=== PATIENT | male | born 1990 | race Caucasian/White ===

== ENCOUNTER 2019-10-09 01:20 | Emergency (ER) | payer BC, SELFPAY ==
--- NOTE | ~2019-10-09 | CT_ITS ---
EXAMINATION: CT cervical spine wo con DATE: 10/09/2019 01:51 INDICATION: Neck pain TECHNIQUE: Computed tomography (CT) of the cervical spine was performed without intravenous contrast. The dose-length product (DLP) was 500.53 mGy-cm. Automated exposure control and iterative reconstruc tion technique were employed. COMPARISON: None FINDINGS: There is no fracture, dislocation, or subluxation. The vertebral body heights, alignment, a nd intervertebral disc spaces are normal. The paravertebral soft tissues are unremarkable. The odonto id is intact. IMPRESSION: 1. No acute osseous abnormality. Reviewed, dictated and finalized at location A.
--- NOTE | 2019-10-09 01:24 | ED.FALL ---
HPI - Fall General Chief Complaint: Fall Stated Complaint: back and neck pain Time Seen by Provider: 10/09/19 01:24 Source: patient and RN notes reviewed Mode of arrival: ambulatory Limitations: no limitations History of Present Illness HPI Narrative: patient was going down the steps. He stopped on the landing in turn to go down the last flight that is approximately 10 steps and he slipped at the top step and slid down. He has pain in his neck. The fall happened early this morning. He denies any numbness or tingling in his legs or arms. He is having difficulty with range of motion in his neck and some muscle spasms. complaint: fall Onset (ago): hour(s) (16) Fall from: down stairs (#) (10) Place fall occurred: home Loss of consciousness: none Context: tripped/slipped Location of injury: neck Severity: moderate Quality: dull and aching Related Data Allergies Allergy/AdvReac Type Severity Reaction Status Date / Time No Known Allergies Verified 03/28/10 14:37 Review of Systems Review of Systems: All systems reviewed & are unremarkable except as noted in HPI and below PMFSH Past Medical History Medical History (Updated 10/09/19 @ 03:29 by Lauro Mix MD) Morbid obesity Surgical History Surgical History (Updated 10/09/19 @ 01:37 by Lauro Mix MD) H/O hand surgery right Social History Social History (Updated 10/09/19 @ 01:38 by Lauro Mix MD) Smoking packs per day: 1 Smoking cigarettes per day: 20.0 Smoking status: Current every day smoker Tobacco type: cigarettes Alcohol intake: current Alcohol use details: occasional Substance use type: marijuana Gender identity (if verbalized by the patient): Male Sexual Orientation (if Verbalized by the Patient): Straight or Heterosexual Exam Const: General: healthy appearing, no acute distress and alert Nutritional Appearance: well nourished and obese morbidly obese Orientation/consciousness: patient oriented x3 HENMT: Head: normal to inspection Eyes: Conjunctivae: conjunctivae normal Pupils: Equal, round and reactive pupils present Neck: Neck: normal visual inspection Resp: Effort & Inspection: normal respiratory effort Auscultation: clear to auscultation bilaterally Cardio: Rate: regular rate Rhythm: regular rhythm GI: Auscultation: normal bowel sounds Back/Spine/Pelvis: Cervical Spine: cervical muscular tenderness ( middle C-spine and lower C-spine on the left), pain with cervical ROM ( all directions), Cervical spine tenderness, No step off deformity and cervical ROM abnormal ( More difficulty with flexion and extension movement causes pain) Skin: General skin exam: normal color Rashes: no rashes Neuro: General: patient oriented x3, moves all extremities and no focal motor deficits Speech: normal speech Gait exam (Neuro): Normal gait present Extrem: General: normal to inspection and no pedal edema Psych: Appearance: grossly normal and well kempt Mental Status: mental status grossly normal Affect: normal affect Attitude: cooperative Thought content: Yes Normal thought content present Course Vital Signs Vital signs: Vital Signs Temperature 36.2 C L 10/09/19 01:25 Pulse Rate 78 10/09/19 01:25 Respiratory Rate 18 10/09/19 01:25 Blood Pressure 156/88 H 10/09/19 01:25 Pulse Oximetry 97 10/09/19 01:25 Temperature 36.2 C L 10/09/19 01:25 Pulse Rate 77 10/09/19 02:40 Respiratory Rate 18 10/09/19 02:40 Blood Pressure 140/88 10/09/19 02:40 Pulse Oximetry 98 10/09/19 02:40 MDM - Fall Imaging Data Radiologist's impression: CT C-spine: No evidence a for cervical spine fracture. Straightening of the normal cervical lordosis which may be related to muscle spasm. Discharge Plan Discharge Clinical Impression: Sprain of cervical neck Qualifiers: Encounter type: initial encounter Qualified Code(s): S13.9XXA - Sprain of joints and ligaments of unspecified parts of nec
[2019-10-09 01:25] VITALS: BP 156/88; PULSE 78; RESP 18; TEMP 36.2; O2SAT 97
[2019-10-09 02:40] VITALS: BP 140/88; PULSE 77; RESP 18; O2SAT 98
[2019-10-09] MEDS: KETOROLAC (*BKC) 60 MG/2 ML VIAL IM (02:58)
[2019-10-09] MEDS: ORPHENADRINE CITRATE 100 MG TABLET.ER PO (02:59)
[2019-10-09 04:23] VITALS: BP 148/78; PULSE 72; RESP 16; TEMP 36.6; O2SAT 98
== END 2019-10-09 04:23 | disposition home or self-care (01) ==
PROVIDERS: Emergency Provider Emergency Medicine; PCP Internal Medicine
DX: S13.9XXA Sprain of joints and ligaments of unspecified parts of neck, initial encounter (principal); W10.9XXA Fall (on) (from) unspecified stairs and steps, initial encounter
CPT/HCPCS: 72125; 96372; 99283; 99284; A9270; J1885

== ENCOUNTER 2021-06-06 00:26 | Emergency (ER) | payer BC, SELFPAY ==
[2021-06-06 00:30] VITALS: BP 145/105; PULSE 115; RESP 20; TEMP 35.7; O2SAT 96
--- NOTE | 2021-06-06 00:43 | ECG_ITS ---
Measurements Intervals [place] Rate: 97 P: 57 NV: 184 QRS: 11 QRSD: 104 T: 69 QT: 320 QTc: 407 Interpretive Statements SINUS RHYTHM POSSIBLE LEFT ATRIAL ENLARGEMENT [-0.1mV P-WAVE IN V1/V2] BORDERLINE ECG NO PREVIOUS ECG AVAILABLE FOR COMPARISON Electronically Signed On 06-06-2021 17:01:05 CDT by Efren Pino M.D.
--- NOTE | 2021-06-06 00:53 | ED.GENADULT ---
HPI - General Adult General Chief complaint: Unspecified Stated complaint: Physc Eval Source: patient and police Limitations: no limitations History of Present Illness HPI narrative: this is a 30-year-old gentleman that was escorted to the ER by police after he was at his mother's home and apparently got into an altercation police were called to the home, Patient stated to his mother and to some friends at his home that he was suicidal and planned to cut his throat.. The patient describes having 4 tall boys, there is no fever chills no chest pain no shortness of breath. The patient Currently denies any suicidal thoughts or ideation no homicidal thoughts or ideations. States that he may have had suicidal thoughts in the past but he also states that has not everybody. Currently not suicidal not homicidal. Onset (ago): hour(s) Related Data Home Medications Medication Instructions Recorded Confirmed No Home Medications 06/06/21 06/06/21 Allergies Allergy/AdvReac Type Severity Reaction Status Date / Time No Known Allergies Verified 06/06/21 00:40 Review of Systems Review of Systems: All systems reviewed & are unremarkable except as noted in HPI and below PMFSH Past Medical History Medical History Morbid obesity Surgical History Surgical History H/O hand surgery right Social History Social History Smoking packs per day: 1 Smoking cigarettes per day: 20.0 Smoking status: Current every day smoker Tobacco type: cigarettes Alcohol intake: current Alcohol use details: occasional Substance use type: marijuana Gender identity (if verbalized by the patient): Male Sexual Orientation (if Verbalized by the Patient): Straight or Heterosexual Exam Const: General: cooperative, healthy appearing and comfortable HENMT: Head: normal to inspection Ears: hearing grossly normal bilaterally General nose exam: Normal external nose present Face and sinus: normal facial exam Mouth: Yes Normal oral and palatal mucosa present Eyes: General: appearance normal, both eyes and all related structures Visual Pollard: normal visual pollard by confrontation Neck: Neck: normal visual inspection Chest: Chest palpation & inspection: normal inspection of the chest Resp: Effort & Inspection: normal respiratory effort and able to speak in complete sentences Cardio: Jugular venous distension: no JVD Palpation: normal PMI Rate: regular rate Rhythm: regular rhythm GI: Inspection: normal to inspection Back/Spine/Pelvis: Back: no CVA tenderness Skin: General skin exam: normal color and no rashes or lesions noted Neuro: General: oriented to person, oriented to place and oriented to time Course Course Emergency Course: EKG and labs reviewed with patient. Labs reviewed with patient and mental health evaluated patient and no current evidence or thoughts or plans suicidal or homicidal intent. Critical Care Time Critical Care Time Critical Care Time: No Discharge Plan Discharge Clinical Impression: Encounter for psychiatric assessment Patient Disposition: Home, Self-Care Condition: Stable Instructions: Antibiotic Form Additional Instructions: keep all follow-up appointments with primary care physician Prescriptions: No Action No Home Medications RF: 0 Follow-up/Referrals: Shyanne Serrano MD [Primary Care Provider] - Time of Disposition: 02:13
[2021-06-06 01:00] LABS: Basophils Absolute Auto 0.06 K/mm3 (0.00-0.10); Basophils Percent Auto 0.7 % (0.0-1.0); Eosinophils Absolute Auto 0.18 K/mm3 (0.02-0.50); Eosinophils Percent Auto 2.2 % (1.0-6.0); Hematocrit 52.3 % (40.0-54.0); Hemoglobin 17.6 g/dL (14.0-18.0); Immature Granulocyte Absolute 0.03 K/mm3 (0.00-0.00); Immature Granulocyte Percent A 0.4 % (0.0-0.0); Lymphocytes Absolute Auto 2.67 K/mm3 (1.10-4.50); Mean Corpuscular HGB Conc 33.7 g/dL (32.0-36.0); Mean Corpuscular Hemoglobin 31.7 pg (27.0-31.0); Mean Corpuscular Volume 94.2 fL (78.0-102.0); Mean Platelet Volume 10.7 fl (8.7-11.0); Monocytes Absolute Auto 0.34 K/mm3 (0.10-0.90); Monocytes Percent Auto 4.2 % (2.0-11.0); Neutrophils Absolute Auto 4.8 K/mm3 (1.7-7.2); Neutrophils Percent Auto 59.5 % (50.0-70.0); Platelet Count Result 252 K/mm3 (150-420); Red Blood Count 5.55 M/mm3 (4.70-6.10); Red Cell Distribution Width 12.6 % (11.6-14.4); White Blood Count 8.1 K/mm3 (4.8-10.8)
[2021-06-06 01:28] LABS: Alanine Aminotransferase 48 U/L (16-63); Albumin Level 4.2 g/dL (3.4-5.0); Alkaline Phosphatase 85 U/L (46-116); Anion Gap 11 mmol/L (8-16); Aspartate Amino Transferase 22 U/L (15-37); Bilirubin,Total 0.4 mg/dL (0.00-1.00); Blood Urea Nitrogen 10 mg/dL (7-18); Calcium 8.5 mg/dL (8.5-10.1); Carbon Dioxide 25 mmol/L (21-32); Chloride 105 mmol/L (98-108); Estimated Glomerular Filt Rate > 60; Ethanol 190 mg/dL (0-6); Glucose 118 mg/dL (70-99); Osmolality Calculated 292 mOsm/kg (285-295); Potassium 3.9 mmol/L (3.5-5.1); Salicylate 3.5 mg/dL (2.8-20.0); Sodium 141 mmol/L (136-145); Thyroid Stimulating Hormone 1.68 uIU/mL (0.36-3.74); Total Protein 7.8 g/dL (6.4-8.2)
[2021-06-06 01:40] LABS: Acetaminophen < 2 ug/mL (10-30)
--- NOTE | 2021-06-06 01:42 | PC.NURSE ---
Pt is getting irate saying he does not want to be here. Pt is talking about past police engagements and he does not feel protected by the police. Pt is easily redirected and cooperative with staffing administrator at this time.
[2021-06-06 01:56] LABS: Amphetamine Screen Urine Negative (Negative); Barbiturate Screen Urine Negative (Negative); Benzodiazepines Screen Urine Negative (Negative); Cannabinoid Screen Urine Positive (Negative); Cocaine Screen Urine Negative (Negative); Methadone Screen Urine Negative (Negative); Opiate Screen Urine Negative (Negative)
[2021-06-06 02:10] VITALS: BP 115/90; PULSE 116; RESP 20; O2SAT 96
--- NOTE | 2021-06-06 02:10 | PC.NURSE ---
[facility] staff, Jorge, arrived and talked to Pt. After talking with pt, Jorge stated pt was free to go if he was medically clear. ERP notified and discharge process started.
== END 2021-06-06 02:18 | disposition home or self-care (01) ==
PROVIDERS: Emergency Provider Emergency Medicine; PCP Internal Medicine
DX: Z00.8 Encounter for other general examination (principal)
CPT/HCPCS: 36415; 80053; 80307; 84443; 85025; 93005; 99284

== ENCOUNTER 2021-06-23 15:35 | Emergency (ER) | payer BC, SELFPAY ==
[2021-06-23 15:40] VITALS: BP 148/72; PULSE 105; RESP 18; TEMP 36.6; O2SAT 97
[2021-06-23 16:31] LABS: Basophils Absolute Auto 0.04 K/mm3 (0.00-0.10); Basophils Percent Auto 0.4 % (0.0-1.0); Eosinophils Absolute Auto 0.25 K/mm3 (0.02-0.50); Eosinophils Percent Auto 2.5 % (1.0-6.0); Hematocrit 48.3 % (40.0-54.0); Immature Granulocyte Absolute 0.03 K/mm3 (0.00-0.00); Immature Granulocyte Percent A 0.3 % (0.0-0.0); Lymphocytes Absolute Auto 3.16 K/mm3 (1.10-4.50); Lymphocytes Percent Auto 31.9 % (18.0-42.0); Mean Corpuscular HGB Conc 35.2 g/dL (32.0-36.0); Mean Corpuscular Hemoglobin 31.9 pg (27.0-31.0); Mean Corpuscular Volume 90.6 fL (78.0-102.0); Mean Platelet Volume 10.9 fl (8.7-11.0); Monocytes Absolute Auto 0.71 K/mm3 (0.10-0.90); Monocytes Percent Auto 7.2 % (2.0-11.0); Neutrophils Absolute Auto 5.7 K/mm3 (1.7-7.2); Neutrophils Percent Auto 57.7 % (50.0-70.0); Platelet Count Result 260 K/mm3 (150-420); Red Blood Count 5.33 M/mm3 (4.70-6.10); Red Cell Distribution Width 11.9 % (11.6-14.4); White Blood Count 9.9 K/mm3 (4.8-10.8)
[2021-06-23 16:32] LABS: Add Urine Microscopic? YES; Appearance Urine Clear (Clear); Bilirubin Urine 2+ (Negative); Blood Urine Negative (Negative); Color Urine Dark Yellow (Yellow); Glucose Urine UA Negative (Negative); Ketones Urine Trace (Negative); Leukocyte Esterase Ur Negative LEU/UL (Negative); Nitrate Urine Negative (Negative); Protein Urine 1+ (Negative); Specific Grav Ur 1.025 (1.010-1.020); pH Urine 5.5 (5.0-8.0)
[2021-06-23 16:38] LABS: Bacteria Urine 3+ /hpf; Mucus Urine Moderate /lpf; RBC Urine 0-2 /hpf (0-2); Squamous Epithelial Cell Urine None seen /hpf (Few); WBC Urine 0-3 /hpf (0-3)
[2021-06-23 16:48] LABS: Amphetamine Screen Urine Positive (Negative); Barbiturate Screen Urine Negative (Negative); Benzodiazepines Screen Urine Negative (Negative); Cannabinoid Screen Urine Positive (Negative); Cocaine Screen Urine Negative (Negative); Methadone Screen Urine Negative (Negative); Opiate Screen Urine Negative (Negative); Phencyclidine Screen Urine Negative (Negative)
[2021-06-23 17:16] VITALS: BP 145/70; PULSE 89; RESP 18; O2SAT 98
[2021-06-23 17:19] LABS: Alanine Aminotransferase 35 U/L (16-63); Albumin Level 4.2 g/dL (3.4-5.0); Alkaline Phosphatase 87 U/L (46-116); Anion Gap 11 mmol/L (8-16); Aspartate Amino Transferase 21 U/L (15-37); Blood Urea Nitrogen 15 mg/dL (7-18); Calcium 9.3 mg/dL (8.5-10.1); Carbon Dioxide 27 mmol/L (21-32); Chloride 101 mmol/L (98-108); Estimated CRCL calculation 146 ml/min; Estimated Glomerular Filt Rate > 60; Glucose 107 mg/dL (70-99); Osmolality Calculated 288 mOsm/kg (285-295); Potassium 3.7 mmol/L (3.5-5.1); Salicylate 4.7 mg/dL (2.8-20.0); Sodium 139 mmol/L (136-145); Total Protein 8.1 g/dL (6.4-8.2)
[2021-06-23 17:22] LABS: Acetaminophen < 2 ug/mL (10-30); Ethanol < 3 mg/dL (0-6)
--- NOTE | 2021-06-23 18:02 | PC.NURSE ---
[facility] staff at bedside interviewing pt.
[2021-06-23 18:20] VITALS: BP 135/67; PULSE 79; RESP 18; TEMP 36.7; O2SAT 98
--- NOTE | 2021-06-23 19:32 | ED.PSYCH ---
HPI - Psych General Chief Complaint: Psychiatric Symptoms Stated Complaint: psych eval Time Seen by Provider: 06/23/21 15:37 Source: patient, RN notes reviewed and old records reviewed Mode of arrival: ambulatory Limitations: no limitations History of Present Illness complaint: feels depressed Onset (ago): day(s) (1) Duration: getting worse History of same: Yes Relieving factors: none Exacerbating factors: none Context: recent drug abuse and not taking psychiatric medications Associated psychiatric symptoms: depression and delusions Treatments prior to arrival: none If self harm: other (none) Related Data Allergies Allergy/AdvReac Type Severity Reaction Status Date / Time No Known Allergies Verified 06/23/21 16:56 Review of Systems Review of Systems: All systems reviewed & are unremarkable except as noted in HPI and below PMFSH Past Medical History Medical History Morbid obesity Schizo-affective psychosis Substance abuse UTI (urinary tract infection) Surgical History Surgical History H/O hand surgery right Social History Social History Smoking packs per day: 1 Smoking cigarettes per day: 20.0 Smoking status: Current every day smoker Tobacco type: cigarettes Alcohol intake: current Alcohol use details: occasional Substance use type: marijuana Gender identity (if verbalized by the patient): Male Sexual Orientation (if Verbalized by the Patient): Straight or Heterosexual Exam Const: General: no acute distress and alert Nutritional Appearance: well nourished Orientation/consciousness: patient oriented x3 Limitations: no limitations HENMT: Ears: external ears normal, TM's normal bilaterally and EAC's normal General nose exam: Normal external nose present and Normal nares present Face and sinus: normal facial exam and sinuses nontender Mouth: Yes moist mucous membranes abnormal Eyes: Conjunctivae: conjunctivae normal Pupils: Equal, round and reactive pupils present EOM: EOMs intact bilaterally Neck: Neck: normal visual inspection and no lymphadenopathy Chest: Chest palpation & inspection: normal inspection of the chest Resp: Effort & Inspection: normal respiratory effort Auscultation: clear to auscultation bilaterally Cardio: Rate: regular rate Rhythm: regular rhythm GI: GI Palp: Yes Soft to palpation and No Tenderness to palpation present (GI) : General: Yes no CVA tenderness Male General Exam: Yes normal external exam Back/Spine/Pelvis: Back: no CVA tenderness Skin: General skin exam: normal color Neuro: General: patient oriented x3, moves all extremities, no meningeal signs, no focal motor deficits and CN's II-XI intact bilaterally Extrem: General: normal to inspection and no pedal edema Psych: Appearance: grossly normal Mental Status: mental status grossly normal Attitude: cooperative Thought content: Yes Paranoid delusions present Course Course Emergency Course: Pt was stable in the ED. For Behavioral Health disposition. Reevaluation(s) Date: 06/23/21 Time: 16:35 Vital Signs Vital signs: Vital Signs Temperature 36.6 C 06/23/21 15:40 Pulse Rate 105 H 06/23/21 15:40 Respiratory Rate 18 06/23/21 15:40 Blood Pressure 148/72 H 06/23/21 15:40 Pulse Oximetry 97 06/23/21 15:40 Temperature 36.6 C 06/23/21 19:36 Pulse Rate 100 06/23/21 19:36 Respiratory Rate 20 06/23/21 19:36 Blood Pressure 132/80 06/23/21 19:36 Pulse Oximetry 95 06/23/21 19:36 MDM - Psych Differential Diagnosis Differential diagnosis: Likely acute psychosis, bipolar disorder and acute anxiety Medical Records Attestation: I reviewed the patient's medical records. Lab Data Attestation: I reviewed the patient's lab results. Result diagrams: 06/23/21 16:24 06/23/21 16
[2021-06-23] MEDS: cefTRIAXone 1 GM VIAL IM (19:33)
[2021-06-23 19:36] VITALS: BP 132/80; PULSE 100; RESP 20; TEMP 36.6; O2SAT 95
== END 2021-06-23 19:43 | disposition home or self-care (01) ==
PROVIDERS: Emergency Provider Emergency Medicine; PCP Internal Medicine
DX: F19.10 Other psychoactive substance abuse, uncomplicated (principal); F25.0 Schizoaffective disorder, bipolar type; N39.0 Urinary tract infection, site not specified
CPT/HCPCS: 36415; 80053; 80307; 81001; 84443; 85025; 96372; 99284; J0696

== ENCOUNTER 2021-07-26 09:52 | Emergency (ER) | payer BC, SELFPAY ==
--- NOTE | ~2021-07-26 | XR_ITS ---
EXAMINATION: XR hand RT min 3V DATE: 07/26/2021 10:24 INDICATION: Pain at the right fifth metacarpal post fall TECHNIQUE: Posteroanterior, oblique and lateral views of the right hand were obtained. COMPARISON: 07/15/2012 FINDINGS: Old fracture of the right fifth metacarpal which is healed in near-anatomic alignment. No acute fract ures identified. Joint spaces are normal. Lucent lesion with narrow zone of transition at the distal pole of the scaphoid which could represent a degenerative cyst or erosion. Soft tissues are unremarka ble. IMPRESSION: 1. No acute osseous abnormality. Reviewed, dictated and finalized at location A.
[2021-07-26 09:52] VITALS: BP 159/99; PULSE 81; RESP 20; TEMP 36.6; O2SAT 100
--- NOTE | 2021-07-26 10:05 | ED.UPPEXIN ---
HPI - Extremity Injury (Upper) General Chief Complaint: Extremity Injury, Upper Stated Complaint: ambulance Time Seen by Provider: 07/26/21 10:06 Source: patient History of Present Illness HPI narrative: 31-year-old history obesity, schizoaffective disorder, substance abuse, prior right hand surgery got intoxicated this morning and fell forwards. He presents with -- right hand pain maximum over the right 5th MP joint -- 0.5 cm ulceration over his dorsal index finger. no other injuries noted. patient is up-to-date on tetanus and has received it in the past 5 years. MD complaint: injury to: right and hand Onset (ago): hour(s) ( 3 hours ago) Other injuries: none Handedness: right Place: home Severity: mild Relieving factors: none Exacerbating factors: none Context: fall Associated symptoms: denies other symptoms Related Data Home Medications Medication Instructions Recorded Confirmed No Home Medications 07/26/21 07/26/21 Allergies Allergy/AdvReac Type Severity Reaction Status Date / Time No Known Allergies Verified 06/23/21 16:56 Review of Systems Review of Systems: All systems reviewed & are unremarkable except as noted in HPI and below Constitutional: Constitutional: Reports as per HPI and Reports no additional constitutional complaints Eyes: Eyes: Reports as per HPI and Reports no additional eye complaints ENT: Reports system reviewed and no additional complaints, except as documented and Reports as per HPI Cardiovascular: Cardiovascular: Reports as per HPI and Reports no additional cardiovascular complaints Respiratory: Respiratory: Reports as per HPI and Reports no additional respiratory complaints Gastrointestinal: Gastrointestinal: Reports as per HPI and Reports no additional gastrointestinal complaints Genitourinary: Genitourinary: Reports no additional male genitourinary complaints and Reports as per HPI Musculoskeletal: Musculoskeletal: Reports no additional musculoskeletal complaints and Reports as per HPI Comments: right hand injury with worst pain over the right 5th MP joint Integumentary/Breasts: Skin/Breast: Reports system reviewed and no additional complaints, except as docu and Reports as per HPI Comments: 0.5 cm ulceration over his dorsal index finger Neurologic: Reports system reviewed and no additional complaints, except as documented and Reports as per HPI Psychiatric: Psychiatric: Reports no additional psychiatric complaints and Reports as per HPI Endocrine: Endocrine: Reports no additional endocrine complaints and Reports as per HPI Hematologic/Lymphatic: Hematologic/Lymphatic: Reports no additional hematologic/lymphatic complaints and Reports as per HPI Allergic/Immunologic: Allergic/Immunologic: Reports no additional allergic/immunologic complaints and Reports as per HPI [facility] Past Medical History Medical History Morbid obesity Schizo-affective psychosis Substance abuse UTI (urinary tract infection) Surgical History Surgical History H/O hand surgery right Social History Social History Smoking packs per day: 1 Smoking cigarettes per day: 20.0 Smoking status: Current every day smoker Tobacco type: cigarettes Alcohol intake: current Alcohol use details: occasional Substance use type: marijuana Gender identity (if verbalized by the patient): Male Sexual Orientation (if Verbalized by the Patient): Straight or Heterosexual Exam Const: General: no acute distress and alert Orientation/consciousness: patient oriented x3 HENMT: Head: normal to inspection Face and sinus: normal facial exam Eyes: Conjunctivae: conjunctivae normal Pupils: Equal, round and reactive pupils present EOM: EOMs intact bilaterally Neck: Neck: normal visual inspection and no lymphadenopathy Chest: Ch
[2021-07-26 11:09] VITALS: BP 158/94; PULSE 72; RESP 20; TEMP 36.6; O2SAT 97
== END 2021-07-26 11:14 | disposition home or self-care (01) ==
PROVIDERS: Emergency Provider Internal Medicine Critical Care Medicine
DX: M79.641 Pain in right hand (principal); F25.9 Schizoaffective disorder, unspecified; F19.10 Other psychoactive substance abuse, uncomplicated; F17.210 Nicotine dependence, cigarettes, uncomplicated; W19.XXXA Unspecified fall, initial encounter
CPT/HCPCS: 73130; 99283